=== PATIENT | female | born 1955 | race Caucasian/White ===

== ENCOUNTER 2017-09-17 14:02 | Emergency (ER) | payer MEDICAID ==
[~2017-09-17] VITALS: Ht 170.2 cm; Wt 102.1 kg
[2017-09-17 14:35] VITALS: BP_SYST 159
[2017-09-17 15:10] VITALS: BP_SYST 140
== END 2017-09-17 15:10 | disposition home or self-care (01) ==
LOC: SED 14:02
DX: J32.0 Chronic maxillary sinusitis (principal); J06.9 Acute upper respiratory infection, unspecified; I10 Essential (primary) hypertension; E11.9 Type 2 diabetes mellitus without complications
CPT/HCPCS: 99283

== ENCOUNTER 2018-09-05 23:12 | Emergency (ER) | payer MEDICAID ==
[~2018-09-05] VITALS: Ht 167.6 cm; Wt 99.8 kg
[2018-09-05 23:17] VITALS: BP_SYST 156
[2018-09-05 23:40] VITALS: BP_SYST 140
== END 2018-09-05 23:40 | disposition home or self-care (01) ==
LOC: SED 23:12
DX: H11.31 Conjunctival hemorrhage, right eye (principal); J32.9 Chronic sinusitis, unspecified; E11.9 Type 2 diabetes mellitus without complications; I10 Essential (primary) hypertension
CPT/HCPCS: 99283

== ENCOUNTER 2019-01-06 14:05 | Emergency (ER) | payer MEDICARE, MEDICAID ==
[~2019-01-06] VITALS: Ht 160 cm; Wt 99.8 kg
[2019-01-06 14:10] VITALS: BP_SYST 164
[2019-01-06] MEDS: IBUPROFEN 600 MG TABLET PO ONE (14:50)
== END 2019-01-06 15:19 | disposition home or self-care (01) ==
LOC: SED 14:05
DX: S29.012A Strain of muscle and tendon of back wall of thorax, initial encounter (principal); E11.9 Type 2 diabetes mellitus without complications; I10 Essential (primary) hypertension; V43.52XA Car driver injured in collision with other type car in traffic accident, initial encounter; Y93.89 Activity, other specified; Y92.410 Unspecified street and highway as the place of occurrence of the external cause; Y99.8 Other external cause status
CPT/HCPCS: 71045; 99283

== ENCOUNTER 2020-10-15 18:46 | Emergency (ER) | payer MEDICARE, MEDICAID ==
[~2020-10-15] VITALS: Ht 170.2 cm; Wt 99.8 kg
[2020-10-15 18:46] VITALS: BP_SYST 131
[2020-10-15 20:09] LABS: BASOPHILS # (AUTO) 0.1 K/uL (0.0-0.2); BASOPHILS % (AUTO) 1.2 % (0.0-2.0); EOSINOPHILS # (AUTO) 0.2 K/uL (0.0-0.4); HEMATOCRIT 41.4 % (36-48); HEMOGLOBIN 13.9 g/dL (12.0-16.0); LYMPHOCYTES # (AUTO) 2.3 K/uL (1.0-5.5); LYMPHOCYTES % (AUTO) 18.3 % (20.5-51.5); MEAN CORPUSCULAR HEMOGLOBIN 26 pg (27-31); MEAN CORPUSCULAR HGB CONC 34 % (32-36); MEAN CORPUSCULAR VOLUME 78 fL (79.0-98.0); MONOCYTES # (AUTO) 0.6 K/uL (0.0-1.0); MONOCYTES % (AUTO) 5.1 % (1.7-9.3); NEUTROPHILS % (AUTO) 73.4 % (40.0-70.0); PLATELET COUNT (AUTO) 371 K/uL (130-430); RED BLOOD CELL COUNT(AUTO) 5.29 MIL/uL (4.2-6.2); RED CELL DISTRIBUTION WIDTH 14.1 % (9.0-15.0); WHITE BLOOD COUNT (AUTO) 12.3 K/uL (4.8-10.8)
[2020-10-15 20:26] LABS: ANION GAP 9 (5-15); CALCIUM 9.5 mg/dL (8.4-11.0); CHLORIDE 102 mmol/L (98-107); CREATININE 1.07 mg/dL (0.55-1.30); GLUCOSE 181 mg/dL (70-99); POTASSIUM 4.1 mmol/L (3.5-5.1); SODIUM SERUM 136 mmol/L (136-145); UREA NITROGEN, BLOOD 15 mg/dL (8-21)
[2020-10-15 20:27] LABS: GFR AFRICAN AMERICAN 66 mL/min (>90)
[2020-10-15 20:31] LABS: ALANINE AMINOTRANSFERASE 45 U/L (12-78); ALBUMIN 3.6 g/dL (3.4-4.8); ASPARTATE AMINOTRANSFERASE 32 U/L (10-37); TOTAL BILIRUBIN 0.2 mg/dL (0.0-1.0)
[2020-10-15 20:33] LABS: C-REACTIVE PROTEIN QUANT < 0.2 mg/dL (0-0.5)
[2020-10-15] MEDS ORDERED: CLIN300C12 PO (20:42)
[2020-10-15] MEDS ORDERED: CLINDAMYCIN PHOSPHATE 300 MG/2 ML VIAL IM ONE (20:45)
[2020-10-15 21:15] VITALS: BP_SYST 131
== END 2020-10-15 21:15 | disposition home or self-care (01) ==
LOC: SED 18:46
DX: T63.301A Toxic effect of unspecified spider venom, accidental (unintentional), initial encounter (principal); I10 Essential (primary) hypertension; E11.9 Type 2 diabetes mellitus without complications; Y92.89 Other specified places as the place of occurrence of the external cause
CPT/HCPCS: 36415; 80053; 83605; 85025; 86140; 96372; 99283; J3490

== ENCOUNTER 2021-06-05 13:54 | Emergency (ER) | payer MEDICARE, MEDICAID ==
[~2021-06-05] VITALS: Ht 170.2 cm; Wt 93.9 kg
[~2021-06-05 13:54] MED LIST: CLIN300C12 PO
[2021-06-05 14:13] VITALS: BP_SYST 137
--- NOTE | 2021-06-05 15:00 | NUR ---
Patient to ER bed 1 to gown for evaluation. Side rails up.
--- NOTE | 2021-06-05 15:03 | NUR ---
ER DR. STEEL AT THE BEDSIDE EXAMINING PT
--- NOTE | 2021-06-05 15:10 | NUR ---
PT CAME IN FROM HOME C/O RIGHT EYE PAIN AND IRRITATION X 4 DAYS WITH REDNESS. PT STATES THIS WEEKEND WHILE HELPING TO CLEAN OUT A GARAGE FELT THAT SHE GOT SOMETHING INTO HER EYE. PT DENIES VISUAL CHANGES, AAOX4, AMBULATORY, V/S STABLE
[2021-06-05] MEDS ORDERED: SULF5DRO EACH EYE (15:17)
[2021-06-05 16:05] VITALS: BP_SYST 137
--- NOTE | 2021-06-05 16:05 | NUR ---
Patient given written and verbal discharge instructions and verbalizes understanding. ER MD discussed with patient the results and treatment provided. Patient in stable condition. ID arm band removed. Rx of BLEPH-10 given. Patient educated on pain management and to follow up with PMD. Pain Scale 0/10. Opportunity for questions provided and answered. Medication side effect fact sheet provided.
== END 2021-06-05 16:05 | disposition home or self-care (01) ==
LOC: SED 13:54
DX: H44.001 Unspecified purulent endophthalmitis, right eye (principal); I10 Essential (primary) hypertension; E11.9 Type 2 diabetes mellitus without complications
CPT/HCPCS: 99283

== ENCOUNTER 2022-03-23 18:46 | Emergency (ER) | payer MEDICARE, MEDICAID ==
[~2022-03-23] VITALS: Ht 170.2 cm; Wt 95.3 kg
[~2022-03-23 18:46] MED LIST changes: +CLIN-142 PO; -CLIN300C12 PO; +SULF5DRO EACH EYE
[2022-03-23 18:48] VITALS: BP_SYST 212
--- NOTE | 2022-03-23 18:50 | NUR ---
Placed in room 6 . Placed on cardiac monitor technician, blood pressure machine and pulse oximeter. To gown for exam. Side rails up. Report given to DARLENE MARY.
[2022-03-23] MEDS ORDERED: IPRATROPIUM BROM 0.5 MG/2.5 ML VIAL.NEB (ATROVENT) INH ONE ×2 (18:52→19:00)
[2022-03-23] MEDS ORDERED: ALBUTEROL SULFATE 0.083% 2.5 MG/3 ML VIAL.NEB INH ONE ×2 (18:52→19:00)
--- NOTE | 2022-03-23 18:55 | NUR ---
ER DR. ALCARAZ EXAMINING PT AT THE BEDSIDE
--- NOTE | 2022-03-23 18:56 | NUR ---
RT AT THE BEDSIDE FOR BREATHING TX
[2022-03-23] MEDS ORDERED: NITROGLYCERIN 0.4 MG TAB.SUBL SL ONE (19:15)
[2022-03-23] MEDS ORDERED: MORPHINE 4 MG INJ. 4 MG/ML VIAL IVP ONE (19:15)
[2022-03-23] MEDS ORDERED: FUROSEMIDE 40 MG/4 ML VIAL IVP ONE (19:15)
[2022-03-23 19:26] LABS: BASOPHILS # (AUTO) 0.1 K/uL (0.0-0.2); EOSINOPHILS # (AUTO) 0.1 K/uL (0.0-0.4); LYMPHOCYTES # (AUTO) 2.7 K/uL (1.0-5.5); LYMPHOCYTES % (AUTO) 31.1 % (20.5-51.5); MEAN CORPUSCULAR VOLUME 79 fL (79.0-98.0); MONOCYTES # (AUTO) 0.3 K/uL (0.0-1.0); MONOCYTES % (AUTO) 3.5 % (1.7-9.3); NEUTROPHILS # (AUTO) 5.5 K/uL (1.8-7.7); NEUTROPHILS % (AUTO) 63.4 % (40.0-70.0); PLATELET COUNT (AUTO) 450 K/uL (130-430); RED BLOOD CELL COUNT(AUTO) 5.09 MIL/uL (4.2-6.2); RED CELL DISTRIBUTION WIDTH 14.2 % (9.0-15.0); WHITE BLOOD COUNT (AUTO) 8.6 K/uL (4.8-10.8)
[2022-03-23 19:46] LABS: ANION GAP 11 (5-15); CALCIUM 8.8 mg/dL (8.4-11.0); CHLORIDE 100 mmol/L (98-107); CREATININE 1.07 mg/dL (0.55-1.30); GLUCOSE 219 mg/dL (70-99); POTASSIUM 4.1 mmol/L (3.5-5.1); SODIUM SERUM 133 mmol/L (136-145); UREA NITROGEN, BLOOD 13 mg/dL (8-21)
[2022-03-23 19:47] LABS: GFR AFRICAN AMERICAN 66 mL/min (>90)
[2022-03-23 19:52] LABS: ALANINE AMINOTRANSFERASE 20 U/L (12-78); ALBUMIN 3.5 g/dL (3.4-4.8); ASPARTATE AMINOTRANSFERASE 22 U/L (10-37); TOTAL BILIRUBIN 0.4 mg/dL (0.0-1.0)
--- NOTE | 2022-03-23 19:56 | NUR ---
RECEIVED REPORT AND ASSUMED CARE FROM TYRA. PATIENT LYING FOWLERS ON STRETCHER RESTING COMFORTABLY. MD VERBALIZES THAT HE IS GOING TO CANCEL MEDS THAT WERE ORDERED. SEE MAR.
--- NOTE | 2022-03-23 20:06 | NUR ---
SHE IS SITTING UP ON STRETCHER. RT AT BEDSIDE. PATIENT STATES THAT SHE IS BREATHING MUCH BETTER. DENIES NEEDS/CONCERNS AT THIS TIME. WILL CONTINUE TO MONITOR.
[2022-03-23] MEDS ORDERED: PRED20TA PO (20:38)
[2022-03-23] MEDS ORDERED: ALBMDI INH (20:38)
[2022-03-23 21:02] VITALS: BP_SYST 139
--- NOTE | 2022-03-23 21:08 | NUR ---
RESTING COMFORTABLY ON STRETCHER. O2 SATS RANGING BTW 93-95% ON 1L VIA NC. SHE REPORTS FEELING MUCH BETTER. DENIES DYSPNEA OR CHEST PAIN/DISCOMFORT AT THIS TIME. BED IN LOW POSITION, WHEELS LOCKED AND SR UP X 2 FOR SAFETY. WILL CONTINUE TO MONITOR.
--- NOTE | 2022-03-23 21:16 | NUR ---
LAB AT BEDSIDE.
--- NOTE | 2022-03-23 22:05 | NUR ---
AMBULATORY TO AND FROM BATHROOM WITH STEADY GAIT. PLACED BACK ON COMPOSITION FLOOR LAYER. VSS. DENIES NEEDS/CONCERNS AT THIS TIME. WILL CONTINUE TO MONITOR. BED IN LOW POSITION, WHEELS LOCKED AND SR UP X 2 FOR SAFETY.
--- NOTE | 2022-03-23 23:24 | NUR ---
Patient given written and verbal discharge instructions and verbalizes understanding. ER MD discussed with patient the results and treatment provided. Patient in stable condition. ID arm band removed. IV catheter removed intact and dressing applied, no active bleeding. Rx of albuterol, prednisone given. Patient educated on pain management and to follow up with PMD. Pain Scale . Opportunity for questions provided and answered. Medication side effect fact sheet provided.
== END 2022-03-23 23:23 | disposition home or self-care (01) ==
LOC: SED 18:46
DX: J45.909 Unspecified asthma, uncomplicated (principal); R06.02 Shortness of breath; E11.9 Type 2 diabetes mellitus without complications; I10 Essential (primary) hypertension; Z79.899 Other long term (current) drug therapy; Z20.822 Contact with and (suspected) exposure to COVID-19
CPT/HCPCS: 80053; 83880; 85025; 84484; 36415; 93005; 71045; 94640; 99285; 83605; 87426; J7613

== ENCOUNTER 2022-10-17 21:53 | Observation (INO) | payer MEDICARE, MEDICAID ==
[~2022-10-17] VITALS: Ht 165.1 cm; Wt 102.1 kg
[~2022-10-17 21:53] MED LIST changes: +ALBMDI INH; +PRED20TA PO
[2022-10-17 22:03] VITALS: BP_SYST 174
--- NOTE | 2022-10-17 22:08 | NUR ---
Placed in room 3 . Placed on track repairer, blood pressure machine and pulse oximeter. To gown for exam. Side rails up. Report given to
--- NOTE | 2022-10-17 22:37 | NUR ---
MD AT BEDSIDE FOR EVALUATION AND ORDERS
--- NOTE | 2022-10-17 22:42 | NUR ---
CODE STROKE CALLED PER
[2022-10-17 23:17] LABS: BASOPHILS % (AUTO) 0.4 % (0.0-2.0); EOSINOPHILS # (AUTO) 0.1 K/uL (0.0-0.4); EOSINOPHILS % (AUTO) 0.8 % (0.0-4.0); HEMATOCRIT 40.3 % (36-48); HEMOGLOBIN 13.1 g/dL (12.0-16.0); LYMPHOCYTES # (AUTO) 2.1 K/uL (1.0-5.5); LYMPHOCYTES % (AUTO) 25.3 % (20.5-51.5); MEAN CORPUSCULAR HEMOGLOBIN 26 pg (27-31); MEAN CORPUSCULAR HGB CONC 33 % (32-36); MEAN CORPUSCULAR VOLUME 79 fL (79.0-98.0); MONOCYTES # (AUTO) 0.3 K/uL (0.0-1.0); MONOCYTES % (AUTO) 3.5 % (1.7-9.3); NEUTROPHILS # (AUTO) 5.8 K/uL (1.8-7.7); PLATELET COUNT (AUTO) 384 K/uL (130-430); RED BLOOD CELL COUNT(AUTO) 5.12 MIL/uL (4.2-6.2); WHITE BLOOD COUNT (AUTO) 8.3 K/uL (4.8-10.8)
[2022-10-17 23:44] LABS: ANION GAP 6 (5-15); CALCIUM 8.9 mg/dL (8.4-11.0); CHLORIDE 102 mmol/L (98-107); CREATININE 1.07 mg/dL (0.55-1.30); GFR AFRICAN AMERICAN 66 mL/min (>90); GLUCOSE 223 mg/dL (70-99); UREA NITROGEN, BLOOD 14 mg/dL (8-21)
[2022-10-17 23:51] LABS: ALANINE AMINOTRANSFERASE 26 U/L (12-78); ALBUMIN 3.5 g/dL (3.4-4.8); ASPARTATE AMINOTRANSFERASE 18 U/L (10-37); CHOLESTEROL 177 mg/dL (<200); TOTAL BILIRUBIN 0.3 mg/dL (0.0-1.0)
[2022-10-18] MEDS ORDERED: ASPIRIN 325 MG TABLET PO ONE
--- NOTE | 2022-10-18 01:51 | NUR ---
Admit bed requested Patient will be admitted to care of . Admitted to MED SURGE unit. Diagnosis TIA Inpatient (Yes or No) N Observation (Yes or No) Y Orientation concerns or request close to nursing station (Yes or No) N Covid Status PENDING On vent or bipap N Isolation requirements N Needs a sitter N From Home (Yes or if No enter name of facility) Y Requires Dialysis (Yes or No) N Med Rec Completed (Yes of No) Y
[2022-10-18] MEDS ORDERED: CARV6.2554 PO (01:57)
[2022-10-18] MEDS ORDERED: LISI30TA36 PO (01:57)
[2022-10-18] MEDS ORDERED: ESCI10TA PO (01:57)
[2022-10-18] MEDS ORDERED: BUSP5TAB3 PO (01:57)
[2022-10-18] MEDS ORDERED: METF-518 PO (01:57)
--- NOTE | 2022-10-18 06:00 | NUR ---
pt admitted to med surg. pt aox4 able to make needs known. pt does not appear to have any deficits. pt denies any numbness or stroke like symptoms. pt ambulatory. physical assessment endorsed to am nurse.
[2022-10-18 06:11] VITALS: BP_SYST 165
--- NOTE | 2022-10-18 07:05 | NUR ---
Patient will be admitted to care of . Admitted to 112b unit. Will go to room . Belongings list completed. Complete and up to date summary report printed. SBAR report to be given at bedside with opportunity for questions.
[2022-10-18 07:58] VITALS: BP_SYST 150
[2022-10-18] MEDS ORDERED: metFORMIN HCL 500 MG TABLET PO SCH (08:00)
--- NOTE | 2022-10-18 08:00 | NUR ---
ASSUMED CARE OF PATIENT AT THIS TIME. A/O X 4. VSS. AFEBRILE. RESPIRATIONS EVEN AND UNLABORED. O2 SAT 97% ON ROOM AIR. PATIENT SITTING UP IN BED EATING BREAKFAST. DENIES PAIN AT THIS TIME. NO ACUTE DISTRESS NOTED. WILL CONTINUE TO MONITOR FOR SAFETY. Maile MONGE RN.
[2022-10-18] MEDS ORDERED: LISINOPRIL 10 MG TABLET (PRINIVIL) PO ONE (09:00)
[2022-10-18] MEDS ORDERED: CITALOPRAM HYDROBROMIDE 20 MG TABLET PO SCH (09:00)
[2022-10-18] MEDS ORDERED: ASPIRIN 81 MG TAB.CHEW PO ONE (09:00)
[2022-10-18] MEDS ORDERED: busPIRone HCL 5 MG TABLET PO SCH (09:00)
--- NOTE | 2022-10-18 09:55 | NUR ---
CONSULTATION PAGED/CALLED Reason for Consultation: [] CVA VS TIA Person Who was Notified: [] texted CONSULT TO DR Taty DAVILA Consulting Physician: [] DR Taty DAVILA Health Care Marketing Manager Specialty: [] NEURO Ordering Physician: [] DR MONTOYA
[2022-10-18] MEDS ORDERED: LORazepam 2 MG/ML VIAL IVP ONE (10:00)
[2022-10-18] MEDS ORDERED: DEXTROSE 50% JECT 50 ML DISP.SYRIN IVP PRN (10:45)
[2022-10-18] MEDS ORDERED: D5W 1,000 ML IV PRN (10:45)
[2022-10-18] MEDS ORDERED: GLUCOSE (DEXTROSE) ORAL GEL -Adults PO PRN (10:45)
[2022-10-18] MEDS ORDERED: INSULIN REGULAR, HUMAN 100 UNITS/ML, 3 ML VIAL (humuLIN R) SUBCUT PRN (10:45)
--- NOTE | 2022-10-18 10:45 | NUR ---
PATIENT OFF THE UNIT FOR MRI OF THE BRAIN. Maile MONGE RN.
[2022-10-18 11:59] VITALS: BP_SYST 142
[2022-10-18] MEDS ORDERED: ASPI-1457 PO (12:15)
--- NOTE | 2022-10-18 14:00 | NUR ---
Pt denies any history of HH, DME or SNF services. States she checks her BP ;but unable to tell CM what her average BP is. states she cant find her BP machine. States she checks her sugar; unable to tell CM average sugar history. States she cant find her glucometer strips. Spoke with daughter who is unable to tell CM where her DME is as well. Daughter does not know what medications pt is taking or SE. Daughter states pt was independent w/ambulation and ADLs before admission. Daughter is agreeable for Home Health services but states that her mom is very stubborn and does not share details of her disease management with her. CM identifies risk for readmission as poor managment of her hypertension and diabetes . CM recommendation for home health; RN for safety eval, disease and medication management
--- NOTE | 2022-10-18 15:04 | NUR ---
Spoke with Dr Ball regarding discharge planning. ok with for RN/ disease management. CHRISTIAN faxed clinicals to Adriane at [facility] f#[phone]
--- NOTE | 2022-10-18 15:19 | NUR ---
CHRISTIAN Forrest with [facility] / [facility] [phone] will set up home health for RN/ disease management. Contracted HH will contact patient
[2022-10-18 15:37] VITALS: BP_SYST 140
[2022-10-18 16:00] VITALS: BP_SYST 135
--- NOTE | 2022-10-18 16:00 | NUR ---
DISCHARGE INSTRUCTIONS AND PLAN OF CARE DISCUSSED WITH PATIENT. PATIENT VERBALIZED UNDERSTANDING. IV DISCONTINUED. PATIENT DISCHARGED HOME WITH FAMILY VIA WHEELCHAIR. Maile MONGE RN.
== END 2022-10-18 16:00 | disposition home health service (06) ==
LOC: SED 21:53 → SMU 10-18 01:18
PROVIDERS: ADMIT Specialist; ATTEND Specialist
DX: G54.0 Brachial plexus disorders (principal); Z20.822 Contact with and (suspected) exposure to COVID-19; I10 Essential (primary) hypertension; I25.10 Atherosclerotic heart disease of native coronary artery without angina pectoris; L50.9 Urticaria, unspecified; J45.909 Unspecified asthma, uncomplicated; F32.A Depression, unspecified; E78.5 Hyperlipidemia, unspecified; F41.9 Anxiety disorder, unspecified; E11.65 Type 2 diabetes mellitus with hyperglycemia; E66.01 Morbid (severe) obesity due to excess calories; Z79.899 Other long term (current) drug therapy
CPT/HCPCS: 82465; 80053; 82962; 85025; 85610; 85730; 86886; 86900; 86901; 84484; 36415 ×2; 93005; 71045; 70450; 76376; 99291; 96374; 93880; 70551; 87426; 96372; J2060; G0378

== ENCOUNTER 2023-12-18 13:03 | Emergency (ER) | payer MEDICARE, MEDICAID ==
[~2023-12-18] VITALS: Ht 160 cm; Wt 108.9 kg
[2023-12-18 13:03] VITALS: BP_SYST 147; PULSE 106; RESP 18; TEMP 98; O2SAT 97
[~2023-12-18 13:03] MED LIST changes: +ASPI-1457 PO; +BUSP5TAB3 PO; +CARV6.2554 PO; +ESCI10TA PO; +LISI30TA36 PO; +METF-518 PO
[2023-12-18] MEDS ORDERED: METF-381 PO (13:31)
[2023-12-18] MEDS ORDERED: DAPA10TA PO (13:31)
[2023-12-18] MEDS ORDERED: ASPI-1393 PO (13:31)
[2023-12-18] MEDS ORDERED: ATOR40TA68 PO (13:31)
[2023-12-18] MEDS ORDERED: CARV12.548 PO (13:31)
[2023-12-18] MEDS ORDERED: ESCI20TA38 PO (13:31)
[2023-12-18] MEDS: ASPIRIN 81 MG TAB.CHEW PO ONE (13:36)
[2023-12-18 13:42] LABS: BASOPHILS % (AUTO) 0.3 % (0.0-2.0); EOSINOPHILS # (AUTO) 0.1 K/uL (0.0-0.4); EOSINOPHILS % (AUTO) 1.1 % (0.0-4.0); HEMATOCRIT 38.5 % (36-48); HEMOGLOBIN 13.1 g/dL (12.0-16.0); LYMPHOCYTES # (AUTO) 1.1 K/uL (1.0-5.5); MEAN CORPUSCULAR HEMOGLOBIN 28 pg (27-31); MEAN CORPUSCULAR HGB CONC 34 % (32-36); MEAN CORPUSCULAR VOLUME 81 fL (79.0-98.0); MONOCYTES # (AUTO) 0.6 K/uL (0.0-1.0); MONOCYTES % (AUTO) 7.1 % (1.7-9.3); NEUTROPHILS # (AUTO) 6.2 K/uL (1.8-7.7); NEUTROPHILS % (AUTO) 77.5 % (40.0-70.0); PLATELET COUNT (AUTO) 327 K/uL (130-430); RED BLOOD CELL COUNT(AUTO) 4.76 MIL/uL (4.2-6.2); RED CELL DISTRIBUTION WIDTH 14.5 % (9.0-15.0); WHITE BLOOD COUNT (AUTO) 8.1 K/uL (4.8-10.8)
[2023-12-18 14:17] LABS: ANION GAP 10 (5-15); CALCIUM 8.8 mg/dL (8.4-11.0); CARBON DIOXIDE 26 mmol/L (23-29); CHLORIDE 101 mmol/L (98-107); CREATININE 1.13 mg/dL (0.55-1.30); GLUCOSE 223 mg/dL (74-106); POTASSIUM 3.9 mmol/L (3.5-5.1); SODIUM SERUM 137 mmol/L (136-145); UREA NITROGEN, BLOOD 15 mg/dL (8-21)
[2023-12-18 14:18] LABS: GFR AFRICAN AMERICAN 61 mL/min (>90); GFR NON AFRICAN-AMERICAN 51 mL/min (>90)
[2023-12-18] MEDS: LORazepam 1 MG TABLET PO ONE (14:43)
[2023-12-18 18:03] VITALS: BP_SYST 145; PULSE 92; RESP 18; TEMP 97.6; O2SAT 96
== END 2023-12-18 18:03 | disposition home or self-care (01) ==
LOC: SED 13:03
DX: R07.89 Other chest pain (principal); F41.1 Generalized anxiety disorder; R00.0 Tachycardia, unspecified; E11.9 Type 2 diabetes mellitus without complications; I10 Essential (primary) hypertension; E78.5 Hyperlipidemia, unspecified; Z79.899 Other long term (current) drug therapy; Z79.2 Long term (current) use of antibiotics
CPT/HCPCS: 36415; 71045; 80048; 83880; 84484; 85025; 93005; 99285

== ENCOUNTER 2024-02-05 19:16 | Emergency (ER) | payer MEDICARE, MEDICAID ==
[~2024-02-05] VITALS: Ht 160 cm; Wt 90.7 kg
[~2024-02-05 19:16] MED LIST changes: +ASPI-1393 PO; +ATOR40TA68 PO; +CARV12.548 PO; +DAPA10TA PO; +ESCI20TA38 PO; +METF-381 PO
[2024-02-05 19:37] VITALS: BP_SYST 160; PULSE 127; RESP 18; TEMP 97.8; O2SAT 94
== END 2024-02-05 21:03 | disposition home or self-care (01) ==
LOC: SED 19:16
DX: S00.03XA Contusion of scalp, initial encounter (principal); R51.9 Headache, unspecified; E11.9 Type 2 diabetes mellitus without complications; I10 Essential (primary) hypertension; E78.5 Hyperlipidemia, unspecified; Z79.899 Other long term (current) drug therapy; Z79.2 Long term (current) use of antibiotics; Y04.0XXA Assault by unarmed brawl or fight, initial encounter; Y93.89 Activity, other specified; Y92.89 Other specified places as the place of occurrence of the external cause; Y99.8 Other external cause status
CPT/HCPCS: 70450-TC; 99284